=== PATIENT | male | born 1975 | race Caucasian/White ===

== ENCOUNTER 2017-02-09 05:12 | Observation (INO) | payer OTHER ==
[~2017-02-09] VITALS: Ht 152.4 cm; Wt 220.4 kg
[~2017-02-09 05:12] MED LIST: ALEVE PM CAPLE1 EACH PO; ALEVE220 M2 PO; ALEVE220 MG PO; CEFDINIR300 MG PO; COLCHICINE0.6 MG PO; COUMADIN5 MG PO; COUMADIN7.5 MG PO; DIGOX250 MCG PO; DIGOXIN250 MCG PO; ENOXAPARIN100 MG/1 M SC; HUMULIN R500 UNITS/ SC; LOVENOX100 MG/1 M SC; METOPROLOL SUCC25 MG PO; TOPROL XL50 MG PO; TYLENOL REGULA325 MG PO; ULTRAM50 MG PO; VENTOLIN HFA18 GM IH; WARFARIN SODIU2.5 MG PO; WARFARIN SODIUM5 MG PO; ZOCOR10 MG PO; [UNRECOGNIZED DRUG - OTHER]
[2017-02-09 06:03] LABS: EOSINOPHIL (%) 2.5 % (0-5); EOSINOPHIL COUNT 0.2 K/uL (0-0.3); HEMATOCRIT 42.7 % (38.0-50.0); IMMATURE GRANULOCYTE (%) 0.3 % (0.0-0.7); INSTRUMENT ABS NEUTROPHIL CT 6.3 K/uL; LYMPHOCYTE COUNT 2.1 K/uL (1.0-2.8); MCH 29.5 PG (29.0-34.0); MCHC 33.3 G/DL (30.0-36.0); MCV 88.6 FL (86-99); MONOCYTE (%) 6.9 % (3-12); MONOCYTE COUNT 0.6 K/uL (0-0.8); NEUTROPHIL (%) 67.8 % (45-76); NEUTROPHIL COUNT 6.3 K/uL (1.8-6.4); PLATELET COUNT 253 K/uL (156-360); RBC DIS.WIDTH-CV 13.6 % (11.8-14.6); RED BLOOD COUNT 4.82 M/uL (4.00-5.50); WHITE BLOOD COUNT 9.3 K/uL (4.1-10.2)
[2017-02-09 06:09] LABS: CHLORIDE 104 mEq/L (99-109); POTASSIUM 3.7 mEq/L (3.7-5.4); SODIUM 138 mEq/L (136-147)
[2017-02-09 06:11] LABS: GLUCOSE 106 mg/dL (70-99)
[2017-02-09 06:13] LABS: ANION GAP 11 MEQ/L (2-14)
[2017-02-09 06:15] LABS: GFR ESTIMATE (CALCULATED) > 59 mL/min/
[2017-02-09 06:16] LABS: UREA NITROGEN (BUN) 13 mg/dL (9-23)
[2017-02-09 06:21] LABS: D-DIMER ELISA < 0.15 mg/L FEU (< 0.57)
[2017-02-09 06:25] LABS: TROP-I INTERPRETATION NEGATIVE; TROPONIN-I < 0.01 ng/mL (0.0-0.30)
[2017-02-09] MEDS ORDERED: TYLENOL EXTRA500 MG PO (07:44)
[2017-02-09] MEDS ORDERED: METOPROLOL SUC100 MG PO (07:45)
[2017-02-09] MEDS ORDERED: METOPROLOL SUCC25 MG PO (07:45)
[2017-02-09] MEDS ORDERED: XARELTO20 MG PO (07:45)
[2017-02-09] MEDS ORDERED: TRAZODONE HCL100 MG PO (07:46)
[2017-02-09 09:59] VITALS: BP 112/65
[2017-02-09 10:35] LABS: HDL CHOLESTEROL 32 MG/DL (Desirable>=40); LDL CHOLESTEROL 65 mg/dL (Desirable<100); NON-HDL CHOLESTEROL 87 mg/dL (Desirable<160); TOTAL CHOLESTEROL 119 mg/dL (Desirable<200); TRIGLYCERIDES 112 MG/DL (Normal: <150)
[2017-02-09 13:46] LABS: TROP-I INTERPRETATION NEGATIVE; TROPONIN-I < 0.01 ng/mL (0.0-0.30)
[2017-02-09 14:24] LABS: Estimated Average Glucose 111 mg/dL (70-123); HEMOGLOBIN A1c (GLYCOHEMOGLOB) 5.5 % HGB (Below 5.7)
[2017-02-09 15:28] VITALS: BP 90/50
[2017-02-09 19:28] VITALS: BP 111/57
[2017-02-09 19:57] LABS: TROP-I INTERPRETATION NEGATIVE; TROPONIN-I < 0.01 ng/mL (0.0-0.30)
[2017-02-09 21:00] VITALS: BP 133/82
[2017-02-10 04:13] VITALS: BP 106/64
[2017-02-10 06:36] LABS: ANION GAP 7 MEQ/L (2-14); CHLORIDE 103 MEQ/L (99-109); GFR ESTIMATE (CALCULATED) > 59 mL/min/; GLUCOSE 77 mg/dL (70-99); POTASSIUM 3.7 MEQ/L (3.7-5.4); SAMPLE HEMOLYSIS CHECK 0; SAMPLE ICTERIC CHECK 0; SAMPLE LIPEMIA CHECK 0; SODIUM 139 MEQ/L (136-147); UREA NITROGEN (BUN) 12 mg/dL (9-23)
== END 2017-02-10 10:10 | disposition home or self-care (01) ==
LOC: EME → EDBD 05:12 → EME 05:12 → 5WEST 07:41 → EDOF 07:41 → 5WEST 09:54
PROVIDERS: Emergency Medicine; Internal Medicine
DX: R07.9 Chest pain, unspecified (principal); R05 Cough; E66.01 Morbid (severe) obesity due to excess calories; Z68.44 Body mass index [BMI] 60.0-69.9, adult; I48.91 Unspecified atrial fibrillation; Z79.01 Long term (current) use of anticoagulants; I50.30 Unspecified diastolic (congestive) heart failure; M10.9 Gout, unspecified; Z86.711 Personal history of pulmonary embolism; Z86.718 Personal history of other venous thrombosis and embolism
CPT/HCPCS: 71010; 80048; 80061; 83036; 83880; 84484; 85025; 85379; 93005; 99281; 99285; G0378; J2270